=== PATIENT | female | born 1935 | race Caucasian/White ===

== ENCOUNTER 2024-02-24 13:55 | Emergency (ER) | payer MEDICARE, BC ==
[~2024-02-24] VITALS: Ht 167.6 cm; Wt 58.2 kg
[2024-02-24 14:09] VITALS: TEMP 98.1
[2024-02-24] MEDS: ACETAMINOPHEN 325 MG TABLET PO ONE (15:33)
[2024-02-24 16:19] VITALS: BP 138/72; PULSE 76; RESP 16
== END 2024-02-24 16:27 | disposition home or self-care (01) ==
LOC: EMS 13:55
DX: S93.402A Sprain of unspecified ligament of left ankle, initial encounter (principal); I10 Essential (primary) hypertension; Z91.014 Allergy to mammalian meats; Z79.899 Other long term (current) drug therapy; X50.1XXA Overexertion from prolonged static or awkward postures, initial encounter; Y93.89 Activity, other specified; Y92.89 Other specified places as the place of occurrence of the external cause; Y99.8 Other external cause status
CPT/HCPCS: 99283